=== PATIENT | female | born 1955 | race African-American/Black ===

== ENCOUNTER 2019-02-23 13:28 | Inpatient (IN) ==
[2019-02-23] MEDS ORDERED: METOPROLOL TARTRATE 50 MG TABLET PO STA (16:00)
[2019-02-23] MEDS ORDERED: hydrALAZINE 20 MG/1 ML VIAL IV STA (17:27)
[2019-02-23] MEDS ORDERED: hydrALAZINE 20 MG/1 ML VIAL ONE (17:28)
[2019-02-23] MEDS ORDERED: ONDANSETRON 4 MG/2 ML VIAL IV PRN (18:45)
[2019-02-23] MEDS ORDERED: GLUCAGON 1 MG VIAL IM PRN (18:45)
[2019-02-23] MEDS ORDERED: DEXTROSE 10% 250 ML BAG IV PRN (18:45)
[2019-02-23] MEDS ORDERED: ACETAMINOPHEN 325 MG TABLET PO PRN (18:45)
[2019-02-23] MEDS ORDERED: hydrALAZINE 20 MG/1 ML VIAL IV PRN (18:49)
[2019-02-23] MEDS ORDERED: GABAPENTIN 100 MG CAPSULE PO SCH (21:00)
[2019-02-23] MEDS ORDERED: rOPINIRole 0.25 MG TABLET PO SCH (21:00)
[2019-02-23] MEDS ORDERED: INSULIN GLARGINE 100 UNIT/ML SUBCUT SCH (21:00)
[2019-02-23 22:00] LABS: Alanine Aminotransferase 32 U/L (13-56); Albumin 2.9 G/DL (3.4-5.0); Alkaline Phosphatase 105 U/L (45-117); Aspartate Amino Transferase 27 U/L (0-37); Bilirubin,Total < 0.39 MG/DL (0.2-1.0); Blood Urea Nitrogen 10 MG/DL (7-18); Calcium 8.5 MG/DL (8.5-10.1); Estimated Glom Filtration Rate 97 ML/MIN; Glucose 238 MG/DL (74-106); HDL Cholesterol 57 MG/DL (40-60); Osmolality,Calculated 287.3 MOS/KG (273-304); Risk Ratio 2.84; Thyroid Stimulating Hormone 0.878 uIU/ml (0.358-3.74); Total Protein 7.3 G/DL (6.4-8.3); Triglycerides 85 MG/DL (2-150)
[2019-02-23] MEDS: INSULIN LISPRO 100 UNIT/ML SUBCUT SCH (23:04)
[2019-02-24] MEDS: INSULIN LISPRO 100 UNIT/ML SUBCUT SCH ×3 (08:16→16:45)
[2019-02-24] MEDS ORDERED: METOPROLOL TARTRATE 25 MG TABLET PO SCH (09:00)
[2019-02-24] MEDS ORDERED: PANTOPRAZOLE 40 MG TABLET PO SCH (09:00)
[2019-02-24] MEDS ORDERED: hydroCHLOROthiazide 12.5 MG CAPSULE PO SCH (09:00)
[2019-02-24] MEDS ORDERED: INSULIN REGULAR 100 UNIT/ML SUBCUT SCH (16:30)
[2019-02-24 18:20] VITALS: BP 160/83
[2019-02-24] MEDS ORDERED: ATORVASTATIN 20 MG TABLET PO SCH (21:00)
[2019-02-25] MEDS ORDERED: ASPIRIN EC 81 MG TABLET PO SCH (09:00)
[2019-02-25] MEDS ORDERED: CLOPIDOGREL 75 MG TABLET PO SCH (09:00)
== END 2019-02-24 19:00 | disposition left against medical advice (07) | DRG 123 ==
LOC: N.ED 13:28 → N.EDINP 18:45 → N.4E 19:16
PROVIDERS: ADMIT Internal Medicine; ATTEND Internal Medicine